=== PATIENT | male | born 1970 | race American Indian/Alaskan Native ===

== ENCOUNTER 2018-07-05 16:19 | Inpatient (IN) | payer SELFPAY ==
[~2018-07-05] VITALS: Ht 180.3 cm; Wt 115.0 kg
[2018-07-05 17:34] LABS: Hematocrit 33.5 % (37.0-53.0); Hemoglobin 9.1 g/dL (13.5-17.5); Mean Corpuscular HGB 17.7 pg (26.0-34.0); Mean Corpuscular HGB Conc 27.2 g/dL (31.5-36.5); Mean Corpuscular Volume 65 fL (80-100); Mean Platelet Volume 9.9 fL (9.1-12.4); Platelet Count 273 K/mm3 (150-400); RDW Coefficient Variation 17.3 % (11.7-14.2); RDW Standard Deviation 39.7 fL (35.1-46.3); Red Blood Cell Count 5.15 M/mm3 (4.30-5.90); White Blood Cell Count 6.99 K/mm3 (4.00-11.30)
[2018-07-05 18:16] LABS: Alanine Aminotransfer (ALT/SGP 43 U/L (12-78); Albumin, Blood 2.8 g/dL (3.4-5.0); Albumin/Globulin Ratio 0.9 (0.8-1.8); Alk Phos 85 U/L (50-136); Anion Gap 9 mmol/L (6-16); Aspartate Aminotrans (AST/SGOT 35 U/L (12-37); Bilirubin, Total 0.7 mg/dL (0.1-1.0); Blood Urea Nitrogen 17 mg/dL (8-24); Bun/Creatinine Ratio 19.9 (12.0-20.0); CO2, Blood 23 mmol/L (21-32); Calcium, Blood 7.9 mg/dL (8.5-10.1); Chloride, Blood 106 mmol/L (98-108); Creatinine, Blood 0.86 mg/dL (0.60-1.20); Globulin, Blood 3.2 g/dL (2.2-4.0); Glomerular Filtration Rate >60 (60-); Glucose, Blood 115 mg/dL (70-99); Potassium, Blood 3.5 mmol/L (3.5-5.5); Sodium, Blood 138 mmol/L (136-145)
[2018-07-05 18:17] LABS: BAND PERCENT MAN 8 % (0-8); BASOPHILS ABSOLUTE MAN 0.06 K/mm3 (0.00-0.23); BASOPHILS PERCENT MAN 1 % (0-2); EOSINOPHILS PERCENT MAN 0 % (0-6); LYMPHOCYTES PERCENT MAN 3 % (21-46); MONOCYTES ABSOLUTE MAN 0.48 K/mm3 (0.16-1.47); MONOCYTES PERCENT MAN 7 % (4-13); NEUTROPHILS ABSOLUTE MAN 6.22 K/mm3 (1.96-9.15); SEG NEUTROPHILS PERCENT MAN 81 % (41-73); TOTAL CELLS COUNTED 100
--- NOTE | 2018-07-05 22:57 | NUR ---
PT ARRIVES TO ROOM ICU 15 FROM ED AT 2110. REPORT RECEIVED. PT ABLE TO TRANSFER HIMSELF FROM [facility] TO BED WITH MODERATE ASSIST. COMPLAINTS OF LOWER ABDOMINAL PAIN THAT PREVIOUS DOSE OF DILAUDID WAS MAKING PAIN 08/31. 101.5 TEMP UPON ADMIT. O2 WAS ON AT 2 L/M. HAVE SUBSEQUENTLY PLACED PT TO ROOM AIR. BLOOD PRESSURES HAVE BEEN SLIGHTLY HYPOTENSIVE. SEE VITAL SIGN FLOWSHEET FOR DETAILS. NO S/S ADVERSE REACTIONS TO ANTIBIOTIC THERAPY. HAVE GIVEN DOSE OF TYLENOL FOR ELEVATING TEMPERATURE OF 102.2. PENDING RESULTS. PT ALERT AND ORIENTED. PLEASANT AND COOPERATIVE WITH CARE AND ASSESSMENT. PT'S BROTHER AND HIS COMES TO ROOM FOR VISIT AND HAVE SINCE GONE HOME. MEDICATED PT WITH 1 MG DILAUDID FOR INCREASING PAIN AT 10. PT USING PILLOW TO SPLINT. NORMAL SALINE CONTINUES AT 200 ML/HR PER ORDERS. WILL CONTINUE TO MONITOR PT. WILL REVIEW CHART AND PLAN OF CARE FOR THIS PT.
--- NOTE | 2018-07-06 03:44 | NUR ---
HAVE MEDICATED PT WITH TYLENOL 650MG ONCE FOR TEMP OF 102.2. PT HAS BEEN MEDICATED WITH 1MG DILAUDID FOR ABDOMINAL PAIN. PT STATES THAT HE IS DOING WELL WITH PAIN AT THIS TIME. PT HAS NOT VOIDED OF YET. PT'S BROTHER CALLS TO CHECK ON PT. UPDATE GIVEN. PT CURRENTLY RESTING IN BED IN NO DISTRESS. ROOM AIR HE MAINTAINS >90 PERCENT SATURATIONS. WILL CONTINUE TO MONITOR.
[2018-07-06 04:17] LABS: Hematocrit 30.9 % (37.0-53.0); Hemoglobin 8.4 g/dL (13.5-17.5); Mean Corpuscular HGB 17.6 pg (26.0-34.0); Mean Corpuscular HGB Conc 27.2 g/dL (31.5-36.5); Mean Corpuscular Volume 65 fL (80-100); Mean Platelet Volume 10.2 fL (9.1-12.4); Platelet Count 231 K/mm3 (150-400); RDW Coefficient Variation 17.5 % (11.7-14.2); RDW Standard Deviation 40.3 fL (35.1-46.3); Red Blood Cell Count 4.76 M/mm3 (4.30-5.90); White Blood Cell Count 12.65 K/mm3 (4.00-11.30)
[2018-07-06 04:35] LABS: Anion Gap 8 mmol/L (6-16); Blood Urea Nitrogen 20 mg/dL (8-24); Bun/Creatinine Ratio 16.7 (12.0-20.0); CO2, Blood 23 mmol/L (21-32); Chloride, Blood 110 mmol/L (98-108); Glomerular Filtration Rate >60 (60-); Glucose, Blood 93 mg/dL (70-99); Potassium, Blood 3.8 mmol/L (3.5-5.5); Sodium, Blood 141 mmol/L (136-145)
[2018-07-06 06:36] LABS: BAND PERCENT MAN 31 % (0-8); BASOPHILS PERCENT MAN 0 % (0-2); EOSINOPHILS PERCENT MAN 0 % (0-6); LYMPHOCYTES PERCENT MAN 4 % (21-46); MONOCYTES ABSOLUTE MAN 0.12 K/mm3 (0.16-1.47); MONOCYTES PERCENT MAN 1 % (4-13); NEUTROPHILS ABSOLUTE MAN 12.01 K/mm3 (1.96-9.15); SEG NEUTROPHILS PERCENT MAN 64 % (41-73); TOTAL CELLS COUNTED 100
--- NOTE | 2018-07-06 06:43 | NUR ---
PT'S MOTHER AND BROTHER ARRIVE TO SEE PT. HE CURRENTLY IS SLEEPING AND IN NO DISTRESS. HAS HAD A LOWER BP THROUGH THE SHIFT WITH MAP MAINTAINING >60. PT REMAINS ON ROOM AIR AND MAINTAINS >90 PERCENT SATURATIONS. HAS VOIDED 400 ML TEA COLORED URINE. STOOD AT SIDE OF BED WITHOUT ISSUE. PT HAS BEEN MEDICATED AGAIN THIS AM WITH 1 MG DILAUDID WITH GOOD RELIEF. WILL CONTINUE TO MONITOR PT, AND WILL REPORT OFF TO ONCOMING RN.
--- NOTE | 2018-07-06 08:00 | NUR ---
0700-ASSUMED CARE OF PT. PT IS ASLEEP BUT AROUSABLE. PT IS ALERT AND ORIENTED. COMPLAINTS OF TENDERNESS AT THE LOWE ABDOMEN ESPECIALLY WHEN PALPATED. PT IS AFEBRILE AT THIS TIME. PT'S MOTHER AT BEDSIDE. 0730-DR. WILDE AT BEDSIDE. PT WILL BE GOING FOR SURGERY THIS MORNING. PT HAS BEEN NPO SINCE MIDNIGHT PER REPORT FROM NIGHT RN. CONSENT FOR SURGERY WAS OBTAINED BY DR. WILDE.
--- NOTE | 2018-07-06 08:22 | NUR ---
OR CREW CAME BY. TOOK PATIENT TO OR AT THIS TIME.
--- NOTE | 2018-07-06 08:40 | NUR ---
History, Chart, Medications and Allergies reviewed before start of procedure. Lungs clear T/O to Auscultation. Patient confirms NPO status and agrees with scheduled surgery.
--- NOTE | 2018-07-06 12:17 | NUR ---
REPORT GIVEN TO JEAN-CLAUDE CALL IN SURGICAL FLOOR. PT STILL IN THE OR AT THIS TIME. ONCE RECOVERY IS DONE PT WILL BE TRANSFERED TO ROOM [address] WILDE.
--- NOTE | 2018-07-06 13:30 | NUR ---
PT ARRIVED TO ROOM 228 VIA BED FROM PACU PT IS DROWSY ORIENTED TO ROOM
--- NOTE | 2018-07-06 14:06 | NUR ---
POST OP PT POST OP S/P BOWEL RESECTION. PT AWAKENS EASILY, BUT IS DROWSY. PT DENIES PAIN AT THIS TIME. POST OP VS IN PROGRESS AND STABLE. ON 1L NC AND PLANNING TO WEAN OFF TOLERATED. MIDLINE ABD INCISION WITH MEDIPORE DRESSING IS CDI WITH BINDER IN PLACE. DRAIN TO RLQ WITH NO DRAINAGE NOTED AT THIS TIME. HUERTA IN PLACE WITH DARK URINE. IVF INFUSING PER ORDERS. EPIDURAL SITE WNL PER ORACLE DISTRIBUTION CONSULTANT. ICE CHIPS AT BEDSIDE. CALL LIGHT WITHIN REACH.
--- NOTE | 2018-07-06 15:12 | NUR ---
EPIDURAL Q1 VS STARTED AT 1330.
--- NOTE | 2018-07-06 20:55 | NUR ---
pt states bed is uncomfortable upon each rounding, states he has chronic back pain, states the bed on medical floor was much more comfortable. offered egg crate mattress, previous RN Ca has put egg crate on. pt has been instructed how to maneuver the head and foot of bed, encouraged to reposition as needed and call for assistance as needed
--- NOTE | 2018-07-07 00:19 | NUR ---
PT PROVIDED WITH FAN AND TYLENOL PER JUN FOLLOWING TEMP OF 100.8, STATING HE FELT HOT. TEMPERATURE ADJUSTED IN ROOM. PT PROVIDED WITH INCENTIVE SPIROMETER AND INSTRUCTIONS, DEMONSTRATED USE
--- NOTE | 2018-07-07 03:57 | NUR ---
pt with n/v, emesis brown/green mucous. received orders from dr singh, medicated per jun. will continue to monitor. possible placement of NG tube if no improvement. pt notified of this, requests to delay.
--- NOTE | 2018-07-07 04:29 | NUR ---
shift summary: epidural vs completed q1h t/o shift, stable, no acute changes. pt remained a/0 x 4, pleasant/cooperative. pt with n/v from approx 0000 to the end of shift, called surgeon x 2, received orders for antiemetics and pantaprozole, given per mar. pt with >300 ml green/brown watery emesis, changed gown and bedding. upon questioning pt, he states he feels "full" rather than nauseous. Per Dr Aldridge, pt informed he may potentially require an NG tube placed later today. pt wishes to delay this placement if possible. encouraged pt to consider placement as it will improved most likely improve his feeling of fullness and/or nausea. Epidural dressing intact, no kinks in catheter. pt reports pain control at 4/10, is able to sleep intermittently. christy catheter patent and draining 600 ml dark yellow urine. marta drain with >200 ml serosanguinous drainage out. Malecott drain in MARTA site with small amount brown drainage in tubing, only approx 3 inches into tubing. Stoma remained pink and beefy, ostomy appliance intact. Pt with sensation intact to L3.
--- NOTE | 2018-07-07 09:21 | NUR ---
NG TUBE PLACED AT 0915 TO LIS, RETURN OF 500ML DARK BROWN FLUID.
--- NOTE | 2018-07-07 15:42 | NUR ---
SHIFT SUMMARY PT POD 1 COLECTOMY. MIDLINE INCISION C/D/I, PATI DRAINING SS FLUID. OSTOMY STOMA PINK/BEEFY/MOIST WITH 0 OUTPUT. NG TUBE INSERTED FOR CONTINUING N/V, 1800ML OUT SINCE INSERTION BUT PT HAS DENIED NAUSEA. EPIDURAL IN PLACE, PT REPORTS 2/10 PAIN AND APPEARS TO BE RESTING COMFORTABLY. HUERTA PATENT, DRAINING CLEAR YELLOW URINE. O2 SAT 94% ON RA. FAMILY A BEDSIDE.
--- NOTE | 2018-07-07 16:00 | NUR ---
ASSUMED CARE OF PATIENT AT THIS TIME
--- NOTE | 2018-07-07 17:51 | NUR ---
PT HAS BEEN SLEEPING SINCE THIS RN ASSUMED CARE. CONT IVF ORDERED. PT HAD >2L FROM NGT PLACED THIS AM. ICE CHIPS PNLY AT THIS TIME. PATI WITH 90CC OUTPUT. HUERTA DRAINING RUT URINE. EPIDERAL INFUSING, NO S/S PAIN OR DISTRESS. FAMILY AT BEDSIDE, ATTENTIVE. CALL LIGHT IN REACH.
--- NOTE | 2018-07-07 23:14 | NUR ---
RASH APPEARED AT PT NECK AND UPPER CHEST AND FACE, FIRST SEEN AT ABOUT 2305, NOT NOTED WITH INITIAL ASSESSMENT. VITAL SIGNED CHECK AND EPIDURAL ASSESSMENT. PT HAS TEMP OF 100.3, HR 103. ALL OTHER VSS, EPIDURAL LINE AND SITE WNL. PT DENIES SOB OR ITCHING AT RASH SITE. NO NEW MEDICATIONS GIVEN RECENTLY. NGT CLAMPED AND PO TYLENOL GIVEN. WILL CTM PT STATUS. PT SISTER AT BEDSIDE.
--- NOTE | 2018-07-08 01:03 | NUR ---
RASH REASSESSED AT 2306, NO LONGER VISABLE AND PT AFIBRILE. WILL CTM
--- NOTE | 2018-07-08 05:06 | NUR ---
SUMMARY: READ PREVIOUS NOTES. NO ACUTE CHANGE TONIGHT. VSS, PT A/O, ABLE TO SLEEP WELL. EPIDURAL CHECKS Q4 WNL, PT STATES PAIN IS WELL MANAGED. SURGICAL SITES WNL, SEE I/O FOR OUTPUT FROM PATI AND NGT . NO DRAINAGE NOTED FROM MELENCART DRAIN. NO DRAINAGE FROM COLOSTOMY. PT HAS DENIED N/V TONIGHT. NO ACUTE SAFETY CONCERNS, WILL REPORT TO DAY RN
[2018-07-08 05:58] LABS: BASOPHILS ABSOLUTE AUTO 0.01 K/mm3 (0.00-0.23); BASOPHILS PERCENT AUTO 0 % (0-2); EOSINOPHILS PERCENT AUTO 0 % (0-6); Hematocrit 29.4 % (37.0-53.0); Hemoglobin 7.9 g/dL (13.5-17.5); IMMATURE GRAN ABSOLUTE AUTO 0.06 K/mm3 (0.00-0.10); IMMATURE GRAN PERCENT AUTO 0 % (0-1); LYMPHOCYTES ABSOLUTE AUTO 0.85 K/mm3 (0.84-5.20); LYMPHOCYTES PERCENT AUTO 6 % (21-46); MONOCYTES ABSOLUTE AUTO 1.08 K/mm3 (0.16-1.47); MONOCYTES PERCENT AUTO 8 % (4-13); Mean Corpuscular HGB 17.5 pg (26.0-34.0); Mean Corpuscular HGB Conc 26.9 g/dL (31.5-36.5); Mean Corpuscular Volume 65 fL (80-100); Mean Platelet Volume 10.4 fL (9.1-12.4); NEUTROPHILS ABSOLUTE AUTO 12.32 K/mm3 (1.96-9.15); NEUTROPHILS PERCENT AUTO 86 % (41-73); Platelet Count 241 K/mm3 (150-400); RDW Coefficient Variation 17.4 % (11.7-14.2); RDW Standard Deviation 40.4 fL (35.1-46.3); Red Blood Cell Count 4.51 M/mm3 (4.30-5.90); White Blood Cell Count 14.32 K/mm3 (4.00-11.30)
[2018-07-08 06:13] LABS: Anion Gap 9 mmol/L (6-16); Blood Urea Nitrogen 27 mg/dL (8-24); Bun/Creatinine Ratio 30.3 (12.0-20.0); CO2, Blood 24 mmol/L (21-32); Calcium, Blood 7.9 mg/dL (8.5-10.1); Chloride, Blood 111 mmol/L (98-108); Creatinine, Blood 0.89 mg/dL (0.60-1.20); Glomerular Filtration Rate >60 (60-); Glucose, Blood 100 mg/dL (70-99); Magnesium, Blood 2.4 mg/dL (1.6-2.4); Potassium, Blood 3.9 mmol/L (3.5-5.5); Sodium, Blood 144 mmol/L (136-145)
--- NOTE | 2018-07-08 17:54 | NUR ---
SHIFT SUMMARY PT POD 2 EX LAP W/COLECTOMY AND COLOSTOMY PLACEMENT. MIDLINE INCISION C/D/I. OSTOMY WITH NO FLATUS OR DRAINAGE IN BAG. PATI DRAIN OUTPUT 40ML SS FLUID. EPIDURAL FOR PAIN MGMT, REPORTS N/T/WEAKNESS IN BLE-UP TO SIDE OF BED ATTEMPTED TO STAND 2 PERSON ASSIST TO TRANSFER TO CHAIR-UNABLE TO STAND SO PT ASSISTED BACK TO BED. NG WITH LOW OUTPUT OF 50ML. PICC LINE STARTED ALONG WITH CPN. MEDICATED ONCE WITH 25MG BENADRYL FOR RASH ON FACE.
[2018-07-09 06:19] LABS: BASOPHILS ABSOLUTE AUTO 0.01 K/mm3 (0.00-0.23); BASOPHILS PERCENT AUTO 0 % (0-2); EOSINOPHILS ABSOLUTE AUTO 0.01 K/mm3 (0.00-0.68); EOSINOPHILS PERCENT AUTO 0 % (0-6); Hematocrit 28.3 % (37.0-53.0); Hemoglobin 7.8 g/dL (13.5-17.5); IMMATURE GRAN ABSOLUTE AUTO 0.13 K/mm3 (0.00-0.10); IMMATURE GRAN PERCENT AUTO 1 % (0-1); LYMPHOCYTES PERCENT AUTO 10 % (21-46); MONOCYTES ABSOLUTE AUTO 1.27 K/mm3 (0.16-1.47); MONOCYTES PERCENT AUTO 11 % (4-13); Mean Corpuscular HGB 17.8 pg (26.0-34.0); Mean Corpuscular HGB Conc 27.6 g/dL (31.5-36.5); Mean Corpuscular Volume 65 fL (80-100); Mean Platelet Volume 10.2 fL (9.1-12.4); NEUTROPHILS ABSOLUTE AUTO 8.94 K/mm3 (1.96-9.15); NEUTROPHILS PERCENT AUTO 78 % (41-73); NRBC ABSOLUTE 0.05 K/mm3 (0.00-0.02); NRBC Auto 0.4 /100 WBC (0.0-0.2); Platelet Count 217 K/mm3 (150-400); RDW Coefficient Variation 17.2 % (11.7-14.2); RDW Standard Deviation 39.6 fL (35.1-46.3); Red Blood Cell Count 4.37 M/mm3 (4.30-5.90); White Blood Cell Count 11.46 K/mm3 (4.00-11.30)
[2018-07-09 06:40] LABS: Alanine Aminotransfer (ALT/SGP 18 U/L (12-78); Albumin, Blood 1.9 g/dL (3.4-5.0); Albumin/Globulin Ratio 0.6 (0.8-1.8); Alk Phos 54 U/L (50-136); Anion Gap 8 mmol/L (6-16); Aspartate Aminotrans (AST/SGOT 8 U/L (12-37); Bilirubin, Total 0.4 mg/dL (0.1-1.0); Blood Urea Nitrogen 26 mg/dL (8-24); Bun/Creatinine Ratio 35.7 (12.0-20.0); CO2, Blood 25 mmol/L (21-32); Calcium, Blood 7.4 mg/dL (8.5-10.1); Chloride, Blood 108 mmol/L (98-108); Creatinine, Blood 0.73 mg/dL (0.60-1.20); Globulin, Blood 3.2 g/dL (2.2-4.0); Glomerular Filtration Rate >60 (60-); Glucose, Blood 109 mg/dL (70-99); Magnesium, Blood 2.2 mg/dL (1.6-2.4); Phosphorus, Blood 3.3 mg/dL (2.5-4.9); Potassium, Blood 3.7 mmol/L (3.5-5.5); Sodium, Blood 141 mmol/L (136-145); Total Protein, Blood 5.1 g/dL (6.4-8.2)
--- NOTE | 2018-07-09 07:15 | NUR ---
REPORT FROM MARIA BERMEO. ASSUMED PT CARE.
--- NOTE | 2018-07-09 07:40 | NUR ---
PT LYING IN BED IN POSITION OF COMFORT. FAMILY AT BEDSIDE. PT HAS PATI DRAIN TO ABD, HUERTA, RECTAL DRAINAGE TUBE AND COLOSTOMY TO LLQ. NO ISSUES NOTED. ASSESSMENT CHARTED.
--- NOTE | 2018-07-09 08:33 | NUR ---
SHIFT SUMMARY PT A&O X4; NO ACUTE CHANGES. MOTHER AT BEDSIDE THIS AM. MIDLINE DRESSING CDI; FLATUS AND ABOUT 10ML LIQUID BROWN STOOL IN OSTOMY; BEEFY RED STOMA. ABD DISTENTION; FEW BT. PT DENIED NAUSEA T/O SHIFT. PAIN MANGED WITH EPIDURAL; DRESSING CDI. IV CPN PER ORDERS/EMAR. NG TUBE TO LIS, LITTLE CLEAR, GREEN OUT PUT FROM NG TUBE TO LIS; HOB ELEVATED AND PT AND MOTHER EDU ON NEED TO KEEP HOB ELEVATED. SCD'S TO BLE'S. EXT ELEVATED ON PILLOWD; PT ENCOURAGED TO REPOSITION AND EDU ON PRESSURE WOUNDS. CALL LIGHT AND MEMBERSHIP ADMINISTRATOR BUTTON IN REACH. REPORT GIVEN TO DAY SHIFT RN.
--- NOTE | 2018-07-09 08:55 | NUR ---
PT RESTING IN POSITION OF COMFORT. MOVE ARMS W/O ISSUE OR ASSISTANCE. PT FAMILY PRESENT. PT FAMILY CONCERNED ABOUT SOME REDNESS AND SWELLING TO RIGHT SIDE OF FACE. CHARGE NURSE AWARE. WILL DISCUSS WITH SURGEON AND ANESTHESIOLOGIST.
--- NOTE | 2018-07-09 09:35 | NUR ---
PT IN NO DISTRESS. ANSWERS QUESTIONS APPROPRIATELY. NO WORSENING OF REDNESS OR SWELLING. RESP EVEN AND NON LABORED.
--- NOTE | 2018-07-09 10:30 | NUR ---
PT RESTING IN POSITION OF COMFORT. RESP EVEN AND NON LABORED. FAMILY AT BEDSIDE.
--- NOTE | 2018-07-09 11:30 | NUR ---
DR WILDE TO ROOM. PLAN TO CONT NG TUBE (ORDERS TO CLAMP FOR A FEW HRS TO SEE HOW PT TOLERATES), PLAN TO CONT EPIDURAL UNTIL TMRW. PT AGREEABLE AND UNDERSTANDS.
--- NOTE | 2018-07-09 11:41 | NUR ---
ABX STARTED PER ORDERS. NG TUBE CLAMPED. REDNESS AND SWELLING TO FACE NO LONGER APPRECIATED. PT FAMILY AT BEDSIDE. COLOSTOMY BAG WITH SCANT LIQUID. GAS EMPTIED.
--- NOTE | 2018-07-09 11:47 | NUR ---
ANESTHESIOLOGIST TO ROOM TO DISCUSS CONTINUATION OF EPIDURAL UNTIL TOMORROW. PT AGREEABLE.
--- NOTE | 2018-07-09 13:35 | NUR ---
PT RESTING IN POSITION OF COMFORT. REPOSITIONED TO SOME EXTENT. PT DENIES NEEDS. PT FAMILY AT BEDSIDE.
--- NOTE | 2018-07-09 14:28 | NUR ---
NEW BAG IVF STARTED. PT DENIES NAUSEA. REATTACHED NG TO INTERMITTENT LOW WALL SUCTION. PT HERMES ICE CHIPS. FAMILY AT BEDSIDE. NO REDNESS OR SWELLING TO FACE AT THIS TIME.
--- NOTE | 2018-07-09 17:01 | NUR ---
NEW BAG TPN AND NEW BAG FENTANYL STARTED FOR EPIDURAL. WASTE DOCUMENTED WITH ANOTHER RN. FAMILY AT BEDSIDE.
--- NOTE | 2018-07-09 17:17 | NUR ---
ABX STARTED PER EMAR. LINES CLEARED.
--- NOTE | 2018-07-09 18:30 | NUR ---
REDNESS TO FACE IMPROVED. PT RESTING. RESP EVEN AND NON LABORED.
--- NOTE | 2018-07-09 18:53 | NUR ---
NEW SUCTION CANISTER PLACED. PT FAMILY AT BEDSIDE.
[2018-07-10 06:20] LABS: BASOPHILS ABSOLUTE AUTO 0.02 K/mm3 (0.00-0.23); BASOPHILS PERCENT AUTO 0 % (0-2); EOSINOPHILS ABSOLUTE AUTO 0.04 K/mm3 (0.00-0.68); EOSINOPHILS PERCENT AUTO 0 % (0-6); Hematocrit 29.8 % (37.0-53.0); Hemoglobin 8.3 g/dL (13.5-17.5); IMMATURE GRAN ABSOLUTE AUTO 0.25 K/mm3 (0.00-0.10); IMMATURE GRAN PERCENT AUTO 2 % (0-1); LYMPHOCYTES ABSOLUTE AUTO 1.23 K/mm3 (0.84-5.20); LYMPHOCYTES PERCENT AUTO 9 % (21-46); MONOCYTES ABSOLUTE AUTO 1.41 K/mm3 (0.16-1.47); MONOCYTES PERCENT AUTO 10 % (4-13); Mean Corpuscular HGB 17.5 pg (26.0-34.0); Mean Corpuscular HGB Conc 27.9 g/dL (31.5-36.5); Mean Corpuscular Volume 63 fL (80-100); NEUTROPHILS ABSOLUTE AUTO 11.26 K/mm3 (1.96-9.15); NEUTROPHILS PERCENT AUTO 79 % (41-73); NRBC ABSOLUTE 0.11 K/mm3 (0.00-0.02); NRBC Auto 0.8 /100 WBC (0.0-0.2); Platelet Count 227 K/mm3 (150-400); RDW Coefficient Variation 17.2 % (11.7-14.2); RDW Standard Deviation 37.8 fL (35.1-46.3); Red Blood Cell Count 4.74 M/mm3 (4.30-5.90); White Blood Cell Count 14.21 K/mm3 (4.00-11.30)
[2018-07-10 06:22] LABS: Mean Platelet Volume 11.2 fL (9.1-12.4)
[2018-07-10 06:31] LABS: Anion Gap 9 mmol/L (6-16); Blood Urea Nitrogen 21 mg/dL (8-24); Bun/Creatinine Ratio 29.1 (12.0-20.0); CO2, Blood 25 mmol/L (21-32); Calcium, Blood 7.4 mg/dL (8.5-10.1); Chloride, Blood 106 mmol/L (98-108); Creatinine, Blood 0.72 mg/dL (0.60-1.20); Glomerular Filtration Rate >60 (60-); Glucose, Blood 116 mg/dL (70-99); Magnesium, Blood 2.2 mg/dL (1.6-2.4); Phosphorus, Blood 3.5 mg/dL (2.5-4.9); Potassium, Blood 3.6 mmol/L (3.5-5.5); Sodium, Blood 140 mmol/L (136-145)
--- NOTE | 2018-07-10 06:34 | NUR ---
POD 4 S/P EXP LAP W/RESECTION/COLOSTOMY. PT VSS. DRESSING CDI. PAIN MGD W/EPIDURLA, PT DID REQUIRE BREAKTHROUGH MED X2 THIS SHIFT. PT DENIED NAUSEA, NGT PUT OUT 1000ML DARK GREEN DRNG. BT HYPO, OSTOMY PUTTING OUT GAS AND SMALL AMT SS LIQ. PATI PUTTING OUT SS FLUID, MALECOTT DRNG SMALL AMT BROWN FLUID. EPIDURAL SITE WNL, PT REP NO SIG CHANGE IN SENSATION T/O NIGHT. TPN CONT PER ORDERS. PT REMAINS FLAT, SUPPORT AND EDUCATION PRN T/O NIGHT. FRIEND AT BEDSIDE T/O NIGHT. PLAN TO D/C SPIDURAL TODAY. PT USING CALL LIGHT FOR ASSISTANCE, WILL CONT TO MONITOR UNTIL REP GIVEN TO ONCOMING RN.
--- NOTE | 2018-07-10 19:59 | NUR ---
SHIFT SUMMARY: EPIDUAL WAS DC'D. ROPE CUTTER STARTED. PT REPORTS ADEQUATE RELIEF WITH ROPE CUTTER. DERMATOMES PRESENT TO BLE. ENCOURAGE REPOSITIONING AND OUT OF BED. VSS. NG TUBE CLAMPED THIS EVENING. DENIES N/V AT THIS TIME. OSTOMY AND DRAINS ARE ALL PATENT.
[2018-07-11 06:20] LABS: BASOPHILS ABSOLUTE AUTO 0.02 K/mm3 (0.00-0.23); BASOPHILS PERCENT AUTO 0 % (0-2); EOSINOPHILS ABSOLUTE AUTO 0.07 K/mm3 (0.00-0.68); EOSINOPHILS PERCENT AUTO 0 % (0-6); Hematocrit 28.8 % (37.0-53.0); Hemoglobin 7.9 g/dL (13.5-17.5); IMMATURE GRAN ABSOLUTE AUTO 0.36 K/mm3 (0.00-0.10); IMMATURE GRAN PERCENT AUTO 2 % (0-1); LYMPHOCYTES ABSOLUTE AUTO 1.33 K/mm3 (0.84-5.20); LYMPHOCYTES PERCENT AUTO 8 % (21-46); MONOCYTES ABSOLUTE AUTO 1.36 K/mm3 (0.16-1.47); MONOCYTES PERCENT AUTO 8 % (4-13); Mean Corpuscular HGB 17.6 pg (26.0-34.0); Mean Corpuscular HGB Conc 27.4 g/dL (31.5-36.5); Mean Corpuscular Volume 64 fL (80-100); Mean Platelet Volume 11.1 fL (9.1-12.4); NEUTROPHILS ABSOLUTE AUTO 14.14 K/mm3 (1.96-9.15); NEUTROPHILS PERCENT AUTO 82 % (41-73); NRBC ABSOLUTE 0.05 K/mm3 (0.00-0.02); NRBC Auto 0.3 /100 WBC (0.0-0.2); Platelet Count 260 K/mm3 (150-400); RDW Coefficient Variation 17.3 % (11.7-14.2); RDW Standard Deviation 38.8 fL (35.1-46.3); White Blood Cell Count 17.28 K/mm3 (4.00-11.30)
--- NOTE | 2018-07-11 06:23 | NUR ---
POD 5 S/P COLECTOMY W/OSTOMY AND MASS REMOVAL. PT VSS T/O NIGHT, HR CONT TO TREND TACHY LOW 100'S. SATS >90% ON RA. DRESSINGS CDI. NGT CLAMPED T/O NIGHT, PT DENIED N/V, BT HYPO, ABD STILL DISTENDED, SOMEWHAT SOFTER THIS AM. OSTOMY PUTTING OUT SIFT BROWN STOOL+GAS. PATI PUT OUT SCANT SEROUS DRNG, MALICOTT DRAIN W/SCANT BOWN DRNG. HUERTA DRNG RUT URINE. PAIN MGD W/PHYSICAL EDUCATION DEPARTMENT CHAIR W/REP RELIEF. PT DOES C/O GOUT PAIN IN L KNEE, ASPERCREAM APPLIED W/ONLY MILD RELIEF. PT DID SIT UP TO SOB, HERMES WELL, DENIED DIZZINESS WHEN UP. PT NPO X FEW ICE CHIPS, TPN CONT PER ORDERS. MOM PRESENT IN ROOM T/O NIGHT. WILL CONT TO MONITOR UNTIL REP GIVEN TO ONCOMING RN.
[2018-07-11 06:33] LABS: Magnesium, Blood 2.2 mg/dL (1.6-2.4)
[2018-07-11 06:34] LABS: Anion Gap 10 mmol/L (6-16); Blood Urea Nitrogen 21 mg/dL (8-24); Bun/Creatinine Ratio 27.5 (12.0-20.0); CO2, Blood 23 mmol/L (21-32); Calcium, Blood 7.3 mg/dL (8.5-10.1); Chloride, Blood 105 mmol/L (98-108); Creatinine, Blood 0.76 mg/dL (0.60-1.20); Glomerular Filtration Rate >60 (60-); Glucose, Blood 111 mg/dL (70-99); Phosphorus, Blood 3.2 mg/dL (2.5-4.9); Potassium, Blood 4.2 mmol/L (3.5-5.5); Sodium, Blood 138 mmol/L (136-145); Triglycerides 114 mg/dL (30-160)
--- NOTE | 2018-07-11 19:28 | NUR ---
SHIFT SUMMARY PT A&OX4, VSS, POD5 HEMICOLECTOMY W/MASS REMOVAL AND OSTOMY PLACED W/ GAS AND SOFT BROWN STOOL OUPUT. PATI LOW SEROUS OUTPUT, MALICOTT DRAIN SCANT BROWN OUTPUT. HUERTA W/RUT URINE OUTPUT, STAT LOCK ON, OFF FLOOR. BT HYPO, ABD DISTENDED AND TENDER TO TOUCH, ABD BINDER ON WHEN PT WAS UP TO CHAIR. PICC W/TPN @ 75 AND IVF @ 100 AND ABX INFUSED PER EMAR. PAIN MANAGED WITH DILAUDID HAND STRIPER. NG OUT TODAY, HERMES CLEARS, DENIES N&V, LOW INTAKE, ENC PT TO DRINK FLUIDS. STAND PIVOT TO CHAIR FOR FEW HOURS THIS AM. REPORT GIVEN TO EDWIN BERMEO.
--- NOTE | 2018-07-12 05:14 | NUR ---
SHIFT SUMMARY: PT POD #6 FOR HEMICOLECTOMY WITH MASS REMOVAL. OSTOMY BAG PRODUCING SML AMT OF GAS AND SOFT BROWN STOOL. PATI WITH SML AMT OF SS FLUID, MALICOTT DRAIN WITH SML AMT OF BROWN OUTPUT. HUERTA PATENT AND DRAINING DARK-RUT COLORED URINE. FLUIDS INFUSING. ABX GIVEN PER EMAR. TPN INFUSING T/O SHIFT. PT REPORTS ADEQUATE PAIN CONTROL WITH TUBING MACHINE OPERATOR PUMP. HERMES CLR LIQ DIET. DENIES N/V. C/O HEARTBURN ONCE; GIVEN REGLAN PER EMAR. PT RESTING MOST OF SHIFT AND APPEARS TO BE COMFORTABLE.
--- NOTE | 2018-07-12 19:45 | NUR ---
SHIFT SUMMARY PT A&OX4, VSS, UP TO CHAIR SINCE LUNCH. PAIN MANAGED WITH DRESS FITTER AND TORADOL. HERMES REG DIET, DENIES N&V. OSTOMY HAS AIR AND SMALL AMT BROWN LIQ STOOL. SHOWERED TODAY. PLEASANT AND COOPERATIVE. FAMILY AT BESIDE T/O SHIFT. REPORT GIVEN TO EDWIN BERMEO.
--- NOTE | 2018-07-13 04:24 | NUR ---
SHIFT SUMMARY: PT REPORTS TO BE FEELING BETTER TODAY. FAMILY AT BEDSIDE IN BEGINNING OF SHIFT. PT REPOSITIONING SELF TO EDGE OF BED TO VOID IN URINAL PRN. STRENGTH IMPROVING. PAIN MANAGED WITH DILAUDID DIVISION ORDER ANALYST. GIVEN REGLAN ONCE FOR C/O FEELING BLOATED. HERMES REG DIET, EATING SML AMTS AT A TIME. BURPING COLOSTOMY BAG OFTEN. PRODUCING MORE GAS WITH SML AMT OF LIQUID BROWN STOOL. DRAINS WITH SML AMT OF OUTPUT. TPN AND FLUIDS INFUSING.
--- NOTE | 2018-07-13 17:56 | NUR ---
SHIFT SUMMARY PT IS DOING WELL TODAY. SLOWLY HERMES REG DIET. TPN DC'D AND DILAUDID DRY FINISHER DC'D. PT RECEIVING 2 PAIN PILLS AND TORADOL FOR PAIN. MIDLINE INCISION CDI. OSTOMY PRODUCING GAS AND SMALL BROWN LIQ. PATI AND MALECOTT DRAIN WITH MINIMAL DRAINAGE. PT AMBULATED HALLWAYS TODAY INDEPENDENTLY. PICC DRESSING CHANGED AND WNL. FAMILY IN FOR SUPPORT. CALL LIGHT WITHIN REACH.
--- NOTE | 2018-07-14 | NUR ---
RECEIVED HAND OFF FROM Shaniqua PORTER RN USING SBAR. LYING IN SUPINE POSITION WITH EYES OPEN WHILE VISITING WITH FAMILY. ORIENTED TO ROOM, CALL SYSTEM, AND POC, VOICES UNDERSTANDING. MEDICATED FOR C/O PAIN 01/01. COLOSTOMY BAG BURPED OF EXCESS AIR. DENIES FURTHER NEEDS AT THIS TIME. SAFETY MEASURES IN PLACE. WILL CONTINUE TO MONITOR.
--- NOTE | 2018-07-14 06:33 | NUR ---
LYING IN SUPINE POSITION WITH EYES CLOSED. HAS HAD NO C/O PAIN OR DISCOMFORT SHIFT. DENIES FURTHER NEEDS OR WANTS AT THIS TIME. SAFETY MEASURES IN PLACE. WILL GIVE HAND OFF TO ONCOMING SHIFT USING SBAR.
--- NOTE | 2018-07-14 07:20 | NUR ---
pt laying in bed just waking up asked if he can have pain meds will get for pt pt ostomy full of flatus small amt of stool pt stated he has some mild nausea at times when he get up oob but it goes away after 30 min no emesis eating reg diet
--- NOTE | 2018-07-14 09:45 | NUR ---
pt worried about pain control asked when he can have his pain meds again will ask surgeon convenience store clerk if we can increase po percocet to 7.5 mg vs 5 mg per tab and wean off iv altogether
--- NOTE | 2018-07-14 12:15 | NUR ---
PT EATING LUNCH STITTING UP ON EDGE OF BED STATED PAIN MEDS ARE WORKING BETTER INCREASED TO 7.5 MG [address] WATSON BY TO SEE PT ALSO GAVE PT SUPPLIES ALONG WITH HANDOUTS AND ORDER SHEET PT'S BROTHER ALSO READING THE MATERIAL PT STATED HE WILL BE GOING TO STAY WITH HIS UNCLE
--- NOTE | 2018-07-14 13:59 | NUR ---
PT SLEEPING WILL REMOVE DRAIN WHEN PT WAKES UP PER DR WATSON
--- NOTE | 2018-07-14 16:23 | NUR ---
removed drains from the lower drain pt had some liquid brown drainage come out cleaned with soap and water and placed abx oint and put gauze 4x4 dressing will monitor drainage
--- NOTE | 2018-07-14 17:45 | NUR ---
PT SITTING UP IN CHAIR EATING DINNER DRESSING CDI TO DRAIN SITE ABX GIVEN
--- NOTE | 2018-07-15 06:23 | NUR ---
SUMMARY PT TOLERATING PO FLUIDS AND PO PAIN MEDS. VOIDING. OSTOMY PATENT OF STOOL AND FLATUS.
--- NOTE | 2018-07-15 07:15 | NUR ---
DRESSING CHANGED TO OLD DRAIN SITE 1/2 SAT AREA CLEANED WITH SOAP AND SALINE ABX OINT APPLIED WILL ALSO CHANGE PT OSTOMY TODAY WHEN HIS BROTHER IS HERE PT REQ PAIN MED DUE AT 0800 AT 4HR DAX
--- NOTE | 2018-07-15 09:38 | NUR ---
PT SITTING UP IN CHAIR
[2018-07-15] MEDS ORDERED: Percocet 7.5-31 EACH PO (13:10)
--- NOTE | 2018-07-15 15:06 | NUR ---
ostomy changed with pt's brother picc line to be removed by chargeback specialistrn support services instructions reviewed with pt verbalized rx given no acute changes dressing changed supplies given and new binder also given also faxed ostomy paperwork to [facility] pt getting dressed
--- NOTE | 2018-07-15 15:43 | NUR ---
PT'S BROTHER FILLING HIS RX AT [facility]
== END 2018-07-15 16:43 | disposition home or self-care (01) | DRG 329 ==
LOC: ER 16:19 → ICUW 19:23 → SURS 07-06 13:34
PROVIDERS: Internal Medicine; ADMIT Surgery
PROC: 0D1N0Z4 Bypass Sigmoid Colon to Cutaneous, Open Approach (ICD-10-PCS; principal; 2018-07-06 09:15)
DX: C19 Malignant neoplasm of rectosigmoid junction (principal); K63.1 Perforation of intestine (nontraumatic); Z87.891 Personal history of nicotine dependence; M10.9 Gout, unspecified; I95.9 Hypotension, unspecified
CPT/HCPCS: 36415; 36569; 74177; 80048; 80053; 82378; 82947; 83605; 83690; 83735; 84100; 84478; 85025; 87040; 88309; 88342; 90686; 96361-59; 96365-59; 96375-59; 99285-25; A9270-GY; C1751; C9113; J0295; J1100; J1170; J1200; J1650; J1885; J2370; J2405; J2543; J2710; J2765; J3010; J7030; J7120; Q9967

== ENCOUNTER 2018-08-24 11:07 | Day surgery (SDC) | payer OTHER ==
[~2018-08-24] VITALS: Ht 185.4 cm; Wt 104.0 kg
[~2018-08-24 11:07] MED LIST: Percocet 7.5-31 EACH PO
--- NOTE | 2018-08-24 14:27 | NUR ---
08/24/18 1424 Luis A Aguilar [id number] X-RAY TECH JENN INFORMED THIS NURSE THAT DR. SARKAR SAID THE MEDIPORT LINE PLACEMENT IS GOOD.
== END 2018-08-24 14:50 | disposition home or self-care (01) ==
LOC: ORSCSDS 11:07
PROVIDERS: Surgery
PROC: B5161ZA Fluoroscopy of Right Subclavian Vein using Low Osmolar Contrast, Guidance (ICD-10-PCS; principal; 2018-08-24 12:15)
PROC: 05H533Z Insertion of Infusion Device into Right Subclavian Vein, Percutaneous Approach (ICD-10-PCS; principal; 2018-08-24 12:15)
DX: C18.7 Malignant neoplasm of sigmoid colon (principal)
CPT/HCPCS: 77001; C1788; J0690; J1642; J2250; J2704; J3010; J7120

== ENCOUNTER 2018-09-11 20:12 | Emergency (ER) | payer OTHER | END 2018-09-11 21:35 | disposition left against medical advice (07) | LOC: ER 20:12 | DX: Z53.21 Procedure and treatment not carried out due to patient leaving prior to being seen by health care provider (principal) ==

== ENCOUNTER 2019-12-17 07:44 | Day surgery (SDC) | payer OTHER ==
[~2019-12-17] VITALS: Ht 185.4 cm; Wt 122.6 kg
== END 2019-12-17 09:53 | disposition home or self-care (01) ==
LOC: ORSCSDS 07:44
PROVIDERS: Surgery
PROC: 0DBL8ZX Excision of Transverse Colon, Via Natural or Artificial Opening Endoscopic, Diagnostic (ICD-10-PCS; principal; 2019-12-17 09:15)
DX: Z85.038 Personal history of other malignant neoplasm of large intestine (principal); D12.3 Benign neoplasm of transverse colon; D50.9 Iron deficiency anemia, unspecified; E66.01 Morbid (severe) obesity due to excess calories; Z68.35 Body mass index [BMI] 35.0-35.9, adult; Z87.891 Personal history of nicotine dependence; Z79.899 Other long term (current) drug therapy
CPT/HCPCS: 88305; J2704; J7120

== ENCOUNTER 2021-07-14 21:28 | Emergency (ER) | payer OTHER ==
[~2021-07-14] VITALS: Ht 185.4 cm; Wt 117.9 kg
[2021-07-14 22:38] LABS: BASOPHILS ABSOLUTE AUTO 0.03 K/mm3 (0.00-0.23); BASOPHILS PERCENT AUTO 0 % (0-2); EOSINOPHILS PERCENT AUTO 1 % (0-6); Hematocrit 49.3 % (37.0-53.0); Hemoglobin 16.2 g/dL (13.5-17.5); IMMATURE GRAN ABSOLUTE AUTO 0.01 K/mm3 (0.00-0.10); IMMATURE GRAN PERCENT AUTO 0 % (0-1); LYMPHOCYTES ABSOLUTE AUTO 0.88 K/mm3 (0.84-5.20); LYMPHOCYTES PERCENT AUTO 12 % (21-46); MONOCYTES ABSOLUTE AUTO 0.67 K/mm3 (0.16-1.47); MONOCYTES PERCENT AUTO 9 % (4-13); Mean Corpuscular HGB 29.5 pg (26.0-34.0); Mean Corpuscular HGB Conc 32.9 g/dL (31.5-36.5); Mean Corpuscular Volume 90 fL (80-100); Mean Platelet Volume 11.4 fL (9.1-12.4); NEUTROPHILS ABSOLUTE AUTO 5.85 K/mm3 (1.96-9.15); NEUTROPHILS PERCENT AUTO 78 % (41-73); Platelet Count 233 K/mm3 (150-400); RDW Coefficient Variation 13.3 % (11.7-14.2); RDW Standard Deviation 44.5 fL (35.1-46.3); Red Blood Cell Count 5.49 M/mm3 (4.30-5.90); White Blood Cell Count 7.54 K/mm3 (4.00-11.30)
[2021-07-14 22:59] LABS: Alanine Aminotransfer (ALT/SGP 36 U/L (12-78); Albumin, Blood 3.3 g/dL (3.4-5.0); Albumin/Globulin Ratio 1.1 (0.8-1.8); Alk Phos 90 U/L (50-136); Anion Gap 7 mmol/L (6-16); Aspartate Aminotrans (AST/SGOT 33 U/L (12-37); Bilirubin, Total 1.7 mg/dL (0.1-1.0); Blood Urea Nitrogen 13 mg/dL (8-24); Bun/Creatinine Ratio 13.8 (12.0-20.0); CO2, Blood 25 mmol/L (21-32); Calcium, Blood 8.7 mg/dL (8.5-10.1); Chloride, Blood 109 mmol/L (98-108); Creatinine, Blood 0.94 mg/dL (0.60-1.20); Globulin, Blood 3.1 g/dL (2.2-4.0); Glomerular Filtration Rate >60 (60-); Glucose, Blood 114 mg/dL (70-99); Potassium, Blood 4.6 mmol/L (3.5-5.5); Sodium, Blood 141 mmol/L (136-145); Total Protein, Blood 6.4 g/dL (6.4-8.2)
== END 2021-07-15 00:09 | disposition home or self-care (01) ==
LOC: ER 21:28
PROVIDERS: Physician Assistant
DX: R10.9 Unspecified abdominal pain (principal)
CPT/HCPCS: 71045; 74177; 80053; 83605; 85025; 93005; 93010; 99284-25; Q9967

== ENCOUNTER 2021-07-15 15:01 | Emergency (ER) | payer OTHER ==
[~2021-07-15] VITALS: Ht 185.4 cm; Wt 120.2 kg
[2021-07-15 16:09] LABS: BASOPHILS ABSOLUTE AUTO 0.04 K/mm3 (0.00-0.23); BASOPHILS PERCENT AUTO 1 % (0-2); EOSINOPHILS ABSOLUTE AUTO 0.14 K/mm3 (0.00-0.68); EOSINOPHILS PERCENT AUTO 2 % (0-6); Hematocrit 50.8 % (37.0-53.0); Hemoglobin 16.1 g/dL (13.5-17.5); IMMATURE GRAN ABSOLUTE AUTO 0.02 K/mm3 (0.00-0.10); IMMATURE GRAN PERCENT AUTO 0 % (0-1); LYMPHOCYTES PERCENT AUTO 14 % (21-46); MONOCYTES ABSOLUTE AUTO 0.79 K/mm3 (0.16-1.47); MONOCYTES PERCENT AUTO 10 % (4-13); Mean Corpuscular HGB 28.6 pg (26.0-34.0); Mean Corpuscular HGB Conc 31.7 g/dL (31.5-36.5); Mean Corpuscular Volume 90 fL (80-100); Mean Platelet Volume 11.2 fL (9.1-12.4); NEUTROPHILS ABSOLUTE AUTO 6.07 K/mm3 (1.96-9.15); NEUTROPHILS PERCENT AUTO 74 % (41-73); Platelet Count 232 K/mm3 (150-400); RDW Coefficient Variation 13.5 % (11.7-14.2); Red Blood Cell Count 5.63 M/mm3 (4.30-5.90); White Blood Cell Count 8.16 K/mm3 (4.00-11.30)
[2021-07-15 16:25] LABS: Influenza A, PCR NEGATIVE (NEGATIVE); Influenza B, PCR NEGATIVE (NEGATIVE); Resp Syncytial Virus, PCR NEGATIVE (NEGATIVE); SARS-Cov-2 (COVID-19) PCR, MMC NEGATIVE (NEGATIVE)
[2021-07-15 16:31] LABS: Alanine Aminotransfer (ALT/SGP 40 U/L (12-78); Albumin, Blood 3.4 g/dL (3.4-5.0); Albumin/Globulin Ratio 1.1 (0.8-1.8); Alk Phos 88 U/L (50-136); Anion Gap 3 mmol/L (6-16); Aspartate Aminotrans (AST/SGOT 30 U/L (12-37); Blood Urea Nitrogen 17 mg/dL (8-24); CO2, Blood 25 mmol/L (21-32); Calcium, Blood 8.9 mg/dL (8.5-10.1); Chloride, Blood 111 mmol/L (98-108); Creatinine, Blood 1.13 mg/dL (0.60-1.20); Globulin, Blood 3.2 g/dL (2.2-4.0); Glomerular Filtration Rate >60 (60-); Glucose, Blood 107 mg/dL (70-99); Potassium, Blood 4.3 mmol/L (3.5-5.5); Sodium, Blood 139 mmol/L (136-145); Total Protein, Blood 6.6 g/dL (6.4-8.2)
[2021-07-19] MEDS ORDERED: NAPR500 PO (06:19)
[2021-07-19] MEDS ORDERED: FURO20 PO ×2 (07:32→09:20)
== END 2021-07-15 16:59 | disposition left against medical advice (07) ==
LOC: ER 15:01
PROVIDERS: Physician Assistant
DX: R06.02 Shortness of breath (principal); Z53.21 Procedure and treatment not carried out due to patient leaving prior to being seen by health care provider
CPT/HCPCS: 0241U; 36415; 80053; 83880; 84484; 85025; 93005; 93010